=== PATIENT | female | born 1975 | race Caucasian/White ===

== ENCOUNTER 2016-07-17 21:03 | Emergency (ER) | payer MEDICAID ==
--- NOTE | ~2016-07-17 | ER ---
PATIENT'S NAME: IMMANUEL FIGUEROA [facility] AGE: 41 Y [address] ROOM: [place] [address] LOCATION: [facility] ADMIT DATE: 07/17/2016 ER/Outpatient Report DISCHARGE DATE: 07/17/2016 FAMILY PHYSICIAN: PHYSICIAN, NO ATTENDING PHYSICIAN: Amilcar Turner Time of Arrival: 2115 hours. Time of Evaluation: 5 hours. CHIEF COMPLAINT: Vaginal bleeding 1 month . HISTORY OF PRESENT ILLNESS: The patient states that she is approximately 5 weeks' . She found out that she was last . Today, approximately 1 hour prior to arrival, she was just getting ready for bed and went to the bathroom and had blood in her underwear as well as in the toilet. She denies having any pain, has not had any cramping. She has not started any medical care yet for this . She is a 4, para 2, AB1. ALLERGIES: NO KNOWN ALLERGIES. CURRENT MEDICATIONS: vitamins. PAST MEDICAL HISTORY: Benign. PAST SURGERIES: Negative. SOCIAL HISTORY: She lives at home with her and children. She is Maltese speaking. During the initial visit, her son interpreted for her. REVIEW OF SYSTEMS: All negative other than those mentioned in the HPI. PHYSICAL EXAMINATION: VITAL SIGNS: She weighed 52.7 kg; blood pressure is 136/72; pulse of 80; respirations 20; temperature of 98.8, tympanic; O2 saturation is 99% on room air. GENERAL: She is awake, alert, and oriented x4. SKIN: [place], warm, and dry. PATIENT'S NAME: IMMANUEL FIGUEROA [facility] AGE: 41 Y [address] ROOM: [place] [address] LOCATION: [facility] ADMIT DATE: 07/17/2016 ER/Outpatient Report DISCHARGE DATE: 07/17/2016 FAMILY PHYSICIAN: PHYSICIAN, NO ATTENDING PHYSICIAN: Amilcar Turner RESPIRATIONS: Even and nonlabored. Lung sounds are clear throughout. HEART: Regular rate and rhythm. ABDOMEN: Soft and nondistended. Bowel sounds are present. LABORATORY DATA: Lab work was drawn. CBC is within normal limits. Chem panel is within normal limits. Her serum HCG is 136. A 2 ultrasound was completed. professor of industrial technology reports that there was no ectopic . There is a sac, but the fetus is not determined in the sac. Henry was utilized to talk to the patient regarding the ultrasound results. The patient was also given instructions about needing to follow up with [facility] later this week to recheck some lab work and possibly repeat the ultrasound through the Henry furs salesperson, she verbalized understanding. Her blood type came back O positive. IMPRESSION: 1. Vaginal bleeding. 2. Threatened miscarriage. PLAN: Home, rest, fluids. Tylenol as needed. She is not to put anything in the vaginal vault. She should follow up with [facility] in 2-3 days. She verbalized understanding. DEXTER SORTO APRN FOR MD ORION ELLIS/sergei /[id number] P d: 07/18/16 0541 t: 07/18/16 1823, OUTPATIENT REPORT
[2016-07-17 21:51] LABS: BASOPHIL % 0.3 %; EOSINOPHIL # 0.3 K/uL (0.0-0.5); EOSINOPHIL % 2.1 %; HEMATOCRIT 39.6 % (33.0-46.0); HEMOGLOBIN 13.4 g/dL (11.0-15.0); IMMATURE GRANULOCYTE % 0.2 %; LYMPHOCYTE # 4.1 K/uL (0.8-4.0); LYMPHOCYTE % 33.9 %; MCH 30.9 pg (27.0-34.0); MCHC 33.8 gm/dL (32.0-36.5); MCV 91.5 fl (83.0-98.0); MONOCYTE # 0.8 K/uL (0.0-1.0); MONOCYTE % 6.6 %; MPV 8.8 fl (9.4-12.4); NEUTROPHIL # (ANC) 6.8 K/uL (1.8-7.8); NEUTROPHIL % 56.9 %; NRBC % 0 /100WBC (0-0.00); PLATELET COUNT 286 K/uL (150-450); RBC 4.33 M/uL (3.50-5.50); RDW-CV 12.2 % (11.9-14.6); WBC 11.9 K/uL (4.0-11.0)
[2016-07-17 22:11] LABS: ALBUMIN 3.2 gm/dL (3.5-5.0); ALK PHOS 71 IU/L (33-138); ALT 14 IU/L (12-78); ANION GAP 10.4 (10.0-19.0); AST 11 IU/L (10-40); BLOOD UREA NITROGEN 8 mg/dL (6-24); CALCIUM 7.9 mg/dL (8.5-10.5); CHLORIDE 106 mMol/L (96-110); CO2 25 mMol/L (22-32); CREATININE 0.5 mg/dL (0.5-1.1); ESTIMATED GFR (MDRD EQUATION) > 60; POTASSIUM 3.4 mMol/L (3.7-5.1); SODIUM 138 mMol/L (135-145); TOTAL BILIRUBIN 0.3 mg/dL (0.0-1.5); TOTAL PROTEIN 6.5 g/dL (6.0-8.4)
== END 2016-07-17 23:34 | disposition disaster alternative care site (69) ==
LOC: GMED 21:03
PROVIDERS: Emergency Medicine
DX: O20.0 Threatened abortion (principal); Z3A.01 Less than 8 weeks gestation of pregnancy

== ENCOUNTER → 2016-08-10 | Outpatient (CLI) | payer MEDICAID | END | disposition disaster alternative care site (69) | LOC: GRAD 13:51 | DX: O20.0 Threatened abortion (principal) ==

== ENCOUNTER 2016-08-16 19:17 | Emergency (ER) | payer MEDICAID ==
--- NOTE | ~2016-08-16 | ER ---
PATIENT'S NAME: IMMANUEL FIGUEROA [facility] AGE: 41 Y [address] ROOM: [place] [address] LOCATION: ED ADMIT DATE: 08/16/2016 ER/Outpatient Report DISCHARGE DATE: 08/16/2016 FAMILY PHYSICIAN: Ellen Maldonado MD ATTENDING PHYSICIAN: Vivien Hernandez HISTORY OF PRESENT ILLNESS: This is a 41-year-old female, who presents today with chief complaint of vaginal bleeding in . The patient states that she was here probably a month ago, July 17, 2016, for vaginal bleeding. She had an ultrasound done then, which was nonspecific, and also an hCG quant that was about 13,000. The patient continues to have vaginal bleeding since she was seen here a month ago. It is not very heavy. She is not soaking pads. She denies any real pain either. She said yesterday she went to the doctor to get her hCG quant done, but did not get an ultrasound, so she is here asking for an ultrasound. She denies any contractions. No leakage of fluid. No pain with urination. No urinary frequency or urgency. No dysuria. She says she feels something moving on the left side, so she thinks she feels her baby moving. Her LMP was 07/05/2016. She states that she is not bleeding heavily, not using pads really either. PAST MEDICAL HISTORY: None. She is -0-2-2. SOCIAL HISTORY: She does not smoke, drink, or use any drugs. She lives at home with her family. MEDICATIONS: Only prenatals. ALLERGIES: NONE. REVIEW OF SYSTEMS: Reviewed by me and negative with the exception of those discussed in the HPI. PHYSICAL EXAMINATION: GENERAL: The patient is 5 feet tall. She weighs 53.9 kilos. Heart rate is 78 beats per minute, respiratory rate is 16, blood pressure is 122/ , temperature is 98.7, and saturating 98% on room air. GENERAL: The patient is well appearing. She walked into the ER. She is not pale or diaphoretic. Strong pulses. HEART: Regular rate and rhythm. ABDOMEN: Soft, nontender, nondistended. She has no guarding or rebound at PATIENT'S NAME: IMMANUEL FIGUEROA [facility] AGE: 41 Y [address] ROOM: [place], [place] [address] LOCATION: [facility] ADMIT DATE: 08/16/2016 ER/Outpatient Report DISCHARGE DATE: 08/16/2016 FAMILY PHYSICIAN: Ellen Maldonado MD ATTENDING PHYSICIAN: Vivien Hernandez. No suprapubic tenderness. EXTREMITIES: No swelling. Normal range of motion. SKIN: Warm, dry, and intact. EMERGENCY ROOM COURSE: The patient told me that her hCG quant from yesterday was going down. Yesterday, it was 12,000, which does not really make sense for an hCG quant done a month ago that was 13,000. We did repeat the ultrasound, which shows a gestational sac that is IUP, possibly even a yolk sac at this time. However, we did repeat the serum hCG quant here, and it is only 12,000, which is lower than it was a month ago. Discussed this with the patient using the [employer] principal solutions architect and I made a copy for her with the results of her ultrasound. I am not sure if her dates initially with LMP being July 05, 2016, was wrong initially. I am not sure why the hCG is going down either, but the ultrasound while it was nonspecific before, now has a gestational sac, that does not quite make sense to me. It could be an early , could be a nonviable . In any case, if she has continued to have vaginal bleeding, this is what we call threatened miscarriage in . We will have her follow up with her primary care doctor, where she will need a repeat hCG quant and ultrasound. I did discuss with her, since she is 41, she technically has advanced maternal age and should follow up appropriately. IMPRESSION: Vaginal bleeding in . MD JAQUELIN ABURTO/sergei /[id number] d: 08/17/16 0500 t: 08/18/16 1816, OUTPATIENT REPORT
== END 2016-08-16 21:55 | disposition disaster alternative care site (69) ==
LOC: GMED 19:17
DX: O09.521 Supervision of elderly multigravida, first trimester (principal); O20.9 Hemorrhage in early pregnancy, unspecified; Z3A.01 Less than 8 weeks gestation of pregnancy